=== PATIENT | male | born 1965 ===

== ENCOUNTER 2022-03-15 21:29 | Emergency (ER) | payer BC ==
[2022-03-15] MEDS ORDERED: Sodium Chloride 0.9% 10 ML Syringe FLUSH PRN (21:48)
[2022-03-15] MEDS ORDERED: Aspirin 81 MG Tab.Chew PO ONE (22:07)
[2022-03-15 22:11] LABS: ANION GAP 9.4 mEq/L (7-13); CHLORIDE,CL 97 mmol/L (98-107); SODIUM,NA 133 mmol/L (136-145)
[2022-03-15 22:12] LABS: ESTIMATED GFR 95 mL/min (>=60)
== END 2022-03-15 22:33 | disposition home or self-care (01) ==
LOC: DL.ED 21:29
DX: R07.9 Chest pain, unspecified (principal)
CPT/HCPCS: 36415; 80053; 82009; 84484; 85025; 93005; 99285; J3490; 93010; 99284